=== PATIENT | female | born 1955 | race Caucasian/White ===

== ENCOUNTER 2019-07-12 18:32 | Emergency (ER) | payer MEDICAID ==
[~2019-07-12] VITALS: Ht 167.6 cm; Wt 75.0 kg
[~2019-07-12 18:32] MED LIST: ATOR10TA70 PO; MELO-102 PO; METF-438 PO; OMEP20CA11 PO; VALS160T2 PO
[2019-07-12 19:07] LABS: CLARITY,URINE SLIGHTLY CLOUDY (Clear); COLOR,URINE YELLOW (Yellow); GLUCOSE, URINE NEGATIVE (Neg); KETONES,URINE NEGATIVE (Neg); LEUKOCYTE ESTERASE ,URINE SMALL (Neg); NITRITES, URINE NEGATIVE (Neg); OCCULT BLOOD,URINE NEGATIVE (Neg); PH,URINE 5.5 (4.8-8.0); PROTEIN,URINE NEGATIVE (Neg); UROBILINOGEN,URINE 0.2 E.U/dL (0.2-1.0)
[2019-07-12 19:12] LABS: UA COLLECTION TYPE CLN CATCH MIDSTREAM
[2019-07-12 19:16] LABS: BACTERIA,URINE 3+ /HPF (Neg); RBC,URINE 0-2 /HPF (0-2); SQUAMOUS EPITHELIAL CELL,UR MODERATE /LPF (FEW); WBC CLUMPS,URINE FEW /HPF (NEGATIVE)
[2019-07-12 19:16] LABS: BASOPHILS # (AUTO) 0.1 X10'3 (0-0.2); BASOPHILS % (AUTO) 0.6 % (0-1); EOSINOPHILS # (AUTO) 0.1 X10'3 (0-0.9); EOSINOPHILS % (AUTO) 0.3 % (0-6); HEMATOCRIT 43.6 % (35.0-45.0); HEMOGLOBIN 14.9 g/dl (12.0-16.0); LYMPHOCYTES # (AUTO) 1.2 X10'3 (1.1-4.8); LYMPHOCYTES % (AUTO) 6.5 % (21-51); MEAN CORPUSCULAR HEMOGLOBIN 32.3 PG (27.0-31.0); MEAN CORPUSCULAR HGB CONC 34.2 g/dL (33.0-36.5); MEAN CORPUSCULAR VOLUME 94.6 FL (78-98); MEAN PLATELET VOLUME 9.2 FL (7.4-10.4); MONOCYTES # (AUTO) 0.8 X10'3 (0-0.9); MONOCYTES % (AUTO) 4.1 % (2-12); NEUTROPHILS # (AUTO) 17.1 X10'3 (1.8-7.7); NEUTROPHILS % (AUTO) 88.5 % (42-75); PLATELET COUNT 299 X10'3 (140-440); RED BLOOD COUNT 4.61 X10'6 (4.20-5.60); WHITE BLOOD COUNT 19.3 X10'3 (4.5-11.0)
[2019-07-12 19:17] LABS: HYALINE CASTS 0-3 /LPF (NEGATIVE)
[2019-07-12 19:28] LABS: ALANINE AMINOTRANSFERASE 15 U/L (12-78); ALBUMIN 3.9 G/DL (3.4-5.0); ALBUMIN/GLOBULIN RATIO 0.8 (1.1-1.5); ALKALINE PHOSPHATASE 103 IU/L (46-116); ANION GAP 12 (8-16); ASPARTATE AMINO TRANSFERASE 16 U/L (10-37); BILIRUBIN,TOTAL 0.7 MG/DL (0.1-1.0); BLOOD UREA NITROGEN 21 MG/DL (7-18); BUN/CREATININE RATIO 18.4 (6.6-38.0); CALCIUM 8.5 MG/DL (8.5-10.1); CHLORIDE 96 MMOL/L (99-107); CREATININE 1.14 MG/DL (0.40-0.90); GLUCOSE 160 MG/DL (70-104); LIPASE 200 U/L (73-393); POTASSIUM 3.3 MMOL/L (3.5-5.1); SODIUM 136 MMOL/L (135-145); TOTAL CARBON DIOXIDE 27.8 MMOL/L (24-32); TOTAL PROTEIN 8.6 G/DL (6.4-8.2); eGFR 48 ML/MIN
[2019-07-12] MEDS ORDERED: ondansetron/PF 4mg/2ml inj IV ONE (21:35)
[2019-07-12] MEDS ORDERED: morphine 4 MG/ML inj SYRINge IV ONE (21:35)
[2019-07-12] MEDS ORDERED: normal saline 1000ML IV soln IVB ONE (21:35)
[2019-07-12] MEDS ORDERED: METR500T PO (21:38)
[2019-07-12] MEDS ORDERED: ONDA4TAB6 PO (21:38)
[2019-07-12] MEDS ORDERED: CIPR-259 PO (21:38)
[2019-07-12] MEDS ORDERED: HYDR-3965 PO (21:38)
[2019-07-12 23:08] VITALS: BP 147/64
--- NOTE | 2019-07-15 09:32 | NUR ---
called [facility] pharmacy on [address] add keflex 500ng oi qud x 7 days #28 pt. states she needs the pharmacy to send her meds to her at [address] [place] [id number]
== END 2019-07-12 23:10 | disposition home or self-care (01) ==
LOC: ER 18:33
DX: K52.9 Noninfective gastroenteritis and colitis, unspecified (principal); D17.71 Benign lipomatous neoplasm of kidney; R91.1 Solitary pulmonary nodule; R10.84 Generalized abdominal pain; R10.32 Left lower quadrant pain; Z90.710 Acquired absence of both cervix and uterus; Z98.890 Other specified postprocedural states; Z88.6 Allergy status to analgesic agent; Z88.5 Allergy status to narcotic agent; Z79.899 Other long term (current) drug therapy
CPT/HCPCS: 36415; 74176; 80053; 81001; 83605; 83690; 84145; 85025; 87040; 87077; 87088; 87186; 96374; 96375; 99284; J2270; J2405; J7030

== ENCOUNTER 2023-10-04 15:29 | Emergency (ER) | payer MEDICAID ==
[~2023-10-04] VITALS: Ht 167.6 cm; Wt 79.3 kg
[~2023-10-04 15:29] MED LIST changes: -OMEP20CA11 PO; +OMEP20CA15 PO; +ONDA4TAB6 PO
[2023-10-04 16:41] LABS: BILIRUBIN,URINE NEGATIVE (Neg); CLARITY,URINE CLEAR (Clear); COLOR,URINE YELLOW (Yellow); GLUCOSE, URINE NEGATIVE (Neg); KETONES,URINE NEGATIVE (Neg); LEUKOCYTE ESTERASE ,URINE NEGATIVE (Neg); NITRITES, URINE NEGATIVE (Neg); OCCULT BLOOD,URINE NEGATIVE (Neg); PROTEIN,URINE NEGATIVE (Neg); UROBILINOGEN,URINE 0.2 E.U/dL (0.2-1.0)
[2023-10-04 16:49] LABS: BASOPHILS # (AUTO) 0.1 X10'3 (0-0.2); BASOPHILS % (AUTO) 1.1 % (0-1); EOSINOPHILS # (AUTO) 0.3 X10'3 (0-0.9); EOSINOPHILS % (AUTO) 2.4 % (0-6); HEMATOCRIT 44.1 % (35.0-45.0); HEMOGLOBIN 15.1 g/dl (12.0-16.0); LYMPHOCYTES # (AUTO) 2.6 X10'3 (1.1-4.8); LYMPHOCYTES % (AUTO) 24.5 % (21-51); MEAN CORPUSCULAR HEMOGLOBIN 32.5 PG (27.0-31.0); MEAN CORPUSCULAR HGB CONC 34.3 g/dL (33.0-36.5); MEAN CORPUSCULAR VOLUME 94.7 FL (78-98); MEAN PLATELET VOLUME 9.6 FL (7.4-10.4); MONOCYTES # (AUTO) 0.9 X10'3 (0-0.9); MONOCYTES % (AUTO) 8.5 % (2-12); NEUTROPHILS # (AUTO) 6.8 X10'3 (1.8-7.7); NEUTROPHILS % (AUTO) 63.5 % (42-75); PLATELET COUNT 264 X10'3 (140-440); RED BLOOD COUNT 4.66 X10'6 (4.20-5.60); RED CELL DISTRIBUTION WIDTH 14.1 % (11.5-14.5); WHITE BLOOD COUNT 10.8 X10'3 (4.5-11.0)
[2023-10-04 16:50] LABS: UA COLLECTION TYPE CLN CATCH MIDSTREAM
[2023-10-04 16:56] LABS: ALBUMIN 3.7 G/DL (3.4-5.0); ANION GAP 11 (8-16); BLOOD UREA NITROGEN 23 MG/DL (7-18); BUN/CREATININE RATIO 18.3 (10.0-20.0); CALCIUM 8.8 MG/DL (8.5-10.1); CHLORIDE 98 MMOL/L (99-107); CREATININE 1.26 MG/DL (0.40-0.90); GLUCOSE 183 MG/DL (70-104); LIPASE 82 U/L (16-77); POTASSIUM 3.9 MMOL/L (3.5-5.1); SODIUM 136 MMOL/L (135-145); TOTAL CARBON DIOXIDE 27.3 MMOL/L (24-32); eCRCL 41 ML/MIN; eGFR 42 ML/MIN
[2023-10-04] MEDS: acetaminophen w/codeine (30MG) #3 tablet PO ONE (18:10)
[2023-10-04 19:46] LABS: D-DIMER 0.31 MG/L FEU (0-0.50)
[2023-10-04] MEDS: morphine 4 MG/ML inj SYRINge IV ONE (20:14)
[2023-10-04] MEDS: ondansetron/PF 4mg/2ml inj IV ONE (20:16)
[2023-10-04] MEDS ORDERED: CIPR-259 PO (20:26)
[2023-10-04] MEDS ORDERED: LIPA1CAP18 PO (20:26)
[2023-10-04] MEDS ORDERED: METF-900 PO (20:26)
[2023-10-04] MEDS ORDERED: IRBE150T51 PO (20:26)
[2023-10-04] MEDS ORDERED: HYDR25TA5 PO (20:29)
[2023-10-04] MEDS: proCHLORperazine 10 MG/2 ml inj IV ONE (22:08)
[2023-10-05 00:04] VITALS: BP 110/64; PULSE 71; RESP 14; TEMP 97.6; O2SAT 95
== END 2023-10-05 00:06 | disposition home or self-care (01) ==
LOC: ER 15:30
DX: S39.012A Strain of muscle, fascia and tendon of lower back, initial encounter (principal); Z88.5 Allergy status to narcotic agent; Z88.6 Allergy status to analgesic agent; Z88.8 Allergy status to other drugs, medicaments and biological substances; Z79.2 Long term (current) use of antibiotics; Z79.899 Other long term (current) drug therapy; Z90.710 Acquired absence of both cervix and uterus; X58.XXXA Exposure to other specified factors, initial encounter; Y93.89 Activity, other specified; Y92.89 Other specified places as the place of occurrence of the external cause; Y99.8 Other external cause status
CPT/HCPCS: 36415; 71045; 74176; 80048; 81003; 83690; 85025; 85379; 96374; 96375; 99285; J0780; J2270; J2405